=== PATIENT | female | born 1965 | race Caucasian/White ===

== ENCOUNTER 2016-10-15 20:58 | Emergency (ER) | payer OTHER ==
[2016-10-15 21:14] VITALS: TEMP 98.3; BMI 27.4
[2016-10-15] MEDS ORDERED: predniSONE 20 MG TABLET (UD) PO ONE (22:28)
[2016-10-15] MEDS: ALBUTEROL SO4 2.5/IPRATROPIUM 0.5 INH SOL 3 ML VIAL.NEB. NEB SCH ×3 (22:35→23:05)
--- NOTE | 2016-10-15 22:35 | PDOC ---
History of Present Illness - General Chief Complaint: Shortness of Breath Stated Complaint: DIFF BREATHING Time Seen by Provider: 10/15/16 21:35 History Source: Patient, Family Exam Limitations: No Limitations - History of Present Illness Initial Comments: 10/15/16 22:30 Patient is a 51-year-old female with history of hypertension, 2, complaining of chest tightness, shortness of breath 3 months. States has been coughing and wheezing. Cough is productive of white sputum and wheezing mostly at night. States allergy to cats but does not have any cats in her residence and has had no environmental changes. Denies recent travel, no history of PE or DVT, fever, chills, chest pain . No history of asthma but states she has been seen in the ER for the same symptoms and treated with albuterol. Family hx neg for MA, CVA, PE/DVT PMD: None PMHX: as above PSOCHX: neg cig, etoh, drug PFamHX: neg MA/CVA, PE, DVT ALL: NKDA GENERAL/CONSTITUTIONAL: [No fever or chills. No weakness. No weight change.] HEAD, EYES, EARS, NOSE AND THROAT: [No change in vision. No ear pain or discharge. No sore throat.] CARDIOVASCULAR: [No chest pain or shortness of breath.] RESPIRATORY: (+)cough, (+) wheezing, or hemoptysis.] GASTROINTESTINAL: [No nausea, vomiting, diarrhea or constipation. No rectal bleeding.] GENITOURINARY: [No dysuria, frequency, or change in urination.] MUSCULOSKELETAL: [No joint or muscle swelling or pain. No neck or back pain.] SKIN AND BREASTS: [No rash or easy bruising.] NEUROLOGIC: [No headache, vertigo, loss of consciousness, or loss of sensation.] PSYCHIATRIC: [No depression or anxiety.] ENDOCRINE: [No increased thirst. No abnormal weight change.] HEMATOLOGIC/LYMPHATIC: [No anemia, easy bleeding, or history of blood clots.] ALLERGIC/IMMUNOLOGIC: [No hives or skin allergy. No latex allergy.] GENERAL: [The patient is awake, alert, and fully oriented, in no acute distress. ] HEAD: [Normal with no signs of trauma.] EYES: [Pupils equal, round and reactive to light, extraocular movements intact, sclera anicteric, conjunctiva clear.] ENT: [Ears normal, nares patent, oropharynx clear without exudates. Moist mucous membranes.] NECK: [Normal range of motion, supple without lymphadenopathy, JVD, or masses.] LUNGS: [Breath sounds equal, bilateral wheezes, and no crackles.] HEART: [Regular rate and rhythm, normal S1 and S2 without murmur, rub.] ABDOMEN: [Soft, nontender, normoactive bowel sounds. No guarding, no rebound. No masses.] EXTREMITIES: [Normal range of motion, no edema. No clubbing or cyanosis. No cords, erythema, or tenderness.] NEUROLOGICAL: [Cranial nerves II through XII grossly intact. Normal speech, normal gait.] PSYCH: [Normal mood, normal affect.] SKIN: [Warm, Dry, normal turgor, no rashes or lesions noted.] Past History - Past Medical History Allergies/Adverse Reactions: Allergies Allergy/AdvReac Type Severity Reaction Status Date / Time No Known Allergies Allergy Verified 10/15/16 21:12 Home Medications: Ambulatory Orders Amlodipine Besylate [Norvasc -] 10 mg PO DAILY 04/21/16 Albuterol Sulfate Inhaler - [Ventolin HFA Inhaler -] 2 inh PO Q4H #1 inh Amlodipine Besylate 10 mg PO DAILY #20 tablet 10/15/16 Prednisone [Deltasone -] 20 mg PO DAILY #6 tablet 10/15/16 HTN: Yes - Surgical History Abdominal Surgery: Yes (c/section x2) - Psycho/Social/Smoking Cessation Hx Anxiety: No Suicidal Ideation: No Smoking Status: No Smoking History: Never smoked Have you smoked in the past 12 months: No Number of Cigarettes Smoked Daily: 0 Hx Alcohol Use: No Drug/Substance Use Hx: No Substance Use Type: None Hx Substance Use Treatment: No Respiratory Specific PMHX - Complaint Specific PMHX Bronchitis: No Pneumonia: No *Physical Exam - Vital Signs Last Vital Signs Temp Pulse Resp BP Pulse Ox 98.3 F 92 H 22 140/100 95 10/15/16 21:12 10/15/16 21:12 10/15/16 21:12 10/15/16 21:12 10/15/16 21:12 ED Treatment Course - RADIOLOGY Radiology Studies Ordered: Category Date Time Status CHEST PA & LAT [RAD] Stat Radiology 10/15/16 22:29 Ordered Medical Decision Making - Medical Decision Making 10/15/16 22:35 Patient is a 51-year-old female with history of hypertension, C/S 2 c/o SOB, chest tightness, coughing symptoms consistent with bronchitis/asthma. Patient is PERC neg not likely to be PE, Given neb and prednisone. patient received neb treatment and responded Currently has no wheezing symptoms have resolved CXR neg as read by me I discussed the physical exam findings, ancillary test results and final diagnoses with the patient. I answered all of the patient's questions. The patient was satisfied with the care received and felt comfortable with the discharge plan and treatment plan. The Patient agrees to follow up with the primary care physician within 24-72 hours. *DC/Admit/Observation/Transfer Diagnosis at time of Disposition: Bronchitis, Asthma exacerbation - Discharge Dispostion Disposition: HOME Condition at time of disposition: Stable - Prescriptions Prescriptions: Amlodipine Besylate 10 mg PO DAILY #20 tablet Prednisone [Deltasone -] 20 mg PO DAILY #6 tablet Albuterol Sulfate Inhaler - [Ventolin HFA Inhaler -] 2 inh PO Q4H #1 inh - Referrals Referrals: Leonora Skinner MD [Primary Care Provider] - - Patient Instructions Printed Discharge Instructions: DI for Acute Bronchitis Additional Instructions: Your Discharge Instructions: You must call primary care physician within 24 hours to arrange follow-up. Return to the Emergency Department with any new, persistent or worsening symptoms, for fever, chills, SOB, dizziness or any other concerning changes that may occur.
[2016-10-15] MEDS ORDERED: predniSONE 20 MG TABLET (UD) ONE (22:38)
[2016-10-15] MEDS ORDERED: ALBUTEROL SO4 2.5/IPRATROPIUM 0.5 INH SOL 3 ML VIAL.NEB. NEB ONE (22:39)
[2016-10-16 00:32] VITALS: BP 148/89; PULSE 73
== END 2016-10-16 00:31 | disposition home or self-care (01) ==
LOC: JER 20:58
PROC: 3E0F7GC Introduction of Other Therapeutic Substance into Respiratory Tract, Via Natural or Artificial Opening (ICD-10-PCS; principal; 2016-10-15)
DX: J45.901 Unspecified asthma with (acute) exacerbation (principal); J20.9 Acute bronchitis, unspecified; I10 Essential (primary) hypertension
CPT/HCPCS: 71020-TC; 94640; 99282-25

== ENCOUNTER 2016-12-07 23:06 | Emergency (ER) | payer OTHER ==
[2016-12-07] MEDS ORDERED: predniSONE 20 MG TABLET (UD) PO ONE (23:35)
[2016-12-07] MEDS ORDERED: ALBUTEROL SO4 0.083% IH SOL 2.5 MG/3 ML VIAL.NEB. NEB ONE ×3 (23:35→23:55)
--- NOTE | 2016-12-07 23:35 | PDOC ---
History of Present Illness - General History Source: Patient Exam Limitations: No Limitations - History of Present Illness Initial Comments: 12/07/16 23:37 The patient is a 51 year old female with significant past medical history of asthma and hypertension who presents to the ED with 1 month of progressively worsening SOB. Patient reports her SOB has worsened with the past month. She reports associated wheezing and productive cough with white sputum. She uses her inhaler at home that has been somewhat effective. However, after using her inhaler today, her symptoms were not relieved. The patient denies fever, chills, diaphoresis, lightheadedness, and chest pain. The patient denies abdominal pain, nausea, vomiting, and diarrhea. Allergies: NKDA Social History: No alcohol, tobacco, or drug use reported. Past Surgical History: PCP: None reported <Itzel Murry - Last Filed: 12/07/16 23:37> - General History Source: Patient <Toni Boyd - Last Filed: 12/08/16 02:03> - General Chief Complaint: Cold Symptoms Stated Complaint: SHORTNESS OF BREATH Time Seen by Provider: 12/07/16 23:16 Past History <Itzel Murry - Last Filed: 12/07/16 23:37> - Past Medical History HTN: Yes - Surgical History Abdominal Surgery: Yes (c/section x2) - Psycho/Social/Smoking Cessation Hx Anxiety: No Suicidal Ideation: No Smoking Status: No Smoking History: Never smoked Have you smoked in the past 12 months: No Number of Cigarettes Smoked Daily: 0 Information on smoking cessation initiated: No Hx Alcohol Use: No Drug/Substance Use Hx: No Substance Use Type: None Hx Substance Use Treatment: No <Toni Boyd - Last Filed: 12/08/16 02:03> - Past Medical History Allergies/Adverse Reactions: Allergies Allergy/AdvReac Type Severity Reaction Status Date / Time No Known Allergies Allergy Verified 12/07/16 23:15 Home Medications: Ambulatory Orders Amlodipine Besylate [Norvasc -] 10 mg PO DAILY 04/21/16 Amlodipine Besylate 10 mg PO DAILY #20 tablet 10/15/16 Prednisone [Deltasone -] 20 mg PO DAILY #6 tablet 10/15/16 Albuterol Sulfate Inhaler - [Ventolin HFA Inhaler -] 2 inh PO Q4H #1 inh Methylprednisolone [Medrol Dose Rodolfo] 4 mg PO ASDIR #21 tablet 12/08/16 Review of Systems - Review of Systems Able to Perform ROS?: Yes Comments:: 12/07/16 23:37 CONSTITUTIONAL: Absent: fever, no chills, no fatigue EYES: Absent: visual changes ENT: Absent: ear pain, no sore throat CARDIOVASCULAR: Absent: chest pain, no palpitations RESPIRATORY: +productive cough with white sputum, SOB, wheezing GI: Absent: abdominal pain, no nausea, no vomiting, no constipation, no diarrhea GENITOURINARY: Absent: dysuria, no frequency, no hematuria MUSKULOSKELETAL: Absent: back pain, no arthralgia, no myalgia SKIN: Absent: rash NEURO: Absent: headache <Itzel Murry - Last Filed: 12/07/16 23:37> *Physical Exam - Vital Signs Last Vital Signs Temp Pulse Resp BP Pulse Ox 98.2 F 77 18 154/96 94 L 12/07/16 23:15 12/07/16 23:15 12/07/16 23:15 12/07/16 23:15 12/07/16 23:15 - Physical Exam Comments: 12/07/16 23:37 GENERAL: Well-appearing, well-nourished. No apparent distress. HEENT: Normocephalic, atraumatic. PERRL, EOM intact. CARDIOVASCULAR: Normal S1, S2. Regular rate and rhythm. PULMONARY: Mild respiratory distress. Mild conversational dyspnea. Diffuse wheezing bilaterally. ABDOMEN: Soft, non-distended, non-tender. EXTREMITIES: Normal ROM in all four extremities. No gross deformities. SKIN: Warm, dry. No rash NEUROLOGICAL: No focal neurological deficits. <Itzel Murry - Last Filed: 12/07/16 23:37> - Vital Signs Last Vital Signs Temp Pulse Resp BP Pulse Ox 98.2 F 77 18 154/96 94 L 12/07/16 23:15 12/07/16 23:15 12/07/16 23:15 12/07/16 23:15 12/07/16 23:15 <Toni Boyd - Last Filed: 12/08/16 02:03> Medical Decision Making - Medical Decision Making 12/08/16 02:03 Dr. Boyd: The scribe's documentation has been prepared under my direction and personally reviewed by me in its entirery. I confirm that the note above accurately reflects all work, treatment, procedures, and medical decision making performed by me. <Toni Boyd - Last Filed: 12/08/16 02:03> *DC/Admit/Observation/Transfer - Attestations Scribe Attestion: 12/07/16 23:37 Documentation prepared by Itzel Murry, acting as director biomedical engineering for Toni Boyd MD <Itzel Murry - Last Filed: 12/07/16 23:37> - Discharge Dispostion Admit: No <Toni Boyd - Last Filed: 12/08/16 02:03> Diagnosis at time of Disposition: Asthma exacerbation - Discharge Dispostion Disposition: HOME Condition at time of disposition: Stable - Prescriptions Prescriptions: Methylprednisolone [Medrol Dose Rodolfo] 4 mg PO ASDIR #21 tablet Albuterol Sulfate Inhaler - [Ventolin HFA Inhaler -] 2 inh PO Q4H #1 inh - Patient Instructions Printed Discharge Instructions: DI for Asthma -- Adult
[2016-12-07 23:36] VITALS: TEMP 98.2; BMI 29.2
[2016-12-07] MEDS ORDERED: predniSONE 20 MG TABLET (UD) ONE (23:55)
[2016-12-08] MEDS ORDERED: ALBUTEROL SO4 0.083% IH SOL 2.5 MG/3 ML VIAL.NEB. NEB ONE ×2 (00:25→01:57)
[2016-12-08 02:31] VITALS: BP 134/83; PULSE 84
== END 2016-12-08 02:32 | disposition home or self-care (01) ==
LOC: JER 23:06
DX: J45.901 Unspecified asthma with (acute) exacerbation (principal); I10 Essential (primary) hypertension
CPT/HCPCS: 99282-25

== ENCOUNTER 2017-07-25 11:40 | Emergency (ER) | payer OTHER ==
[2017-07-25 11:57] VITALS: TEMP 98.3; BMI 30.2
--- NOTE | 2017-07-25 12:33 | PDOC ---
History of Present Illness - General Chief Complaint: Pain Stated Complaint: BACK PAIN Time Seen by Provider: 07/25/17 12:32 - History of Present Illness Initial Comments: 07/25/17 12:32 Ms. Jensen is a 52 yo female with a significant past medical history of Asthma and Hypertension who presents to the emergency department with a 3 day history of pain in her low back radiating around on both sides to her mid abdomen. She reports that she has additionally had a lot of peeing with minor burning during this time as well. The patient denies chest pain, shortness of breath, headache and dizziness. Denies fever, chills, nausea, vomit, diarrhea and constipation. Denies urgency and hematuria. Allergies: NKDA Social history: Denies Past History - Past Medical History Allergies/Adverse Reactions: Allergies Allergy/AdvReac Type Severity Reaction Status Date / Time No Known Allergies Allergy Verified 07/25/17 11:57 Home Medications: Ambulatory Orders Amlodipine Besylate [Norvasc -] 10 mg PO DAILY 04/21/16 HTN: Yes - Surgical History Abdominal Surgery: Yes (c/section x2) - Suicide/Smoking/Psychosocial Hx Smoking Status: No Smoking History: Never smoked Have you smoked in the past 12 months: No Number of Cigarettes Smoked Daily: 0 Hx Alcohol Use: No Drug/Substance Use Hx: No Substance Use Type: None Hx Substance Use Treatment: No Review of Systems - Review of Systems Comments:: 07/25/17 12:33 GENERAL/CONSTITUTIONAL: No fever or chills. No weakness. HEAD, EYES, EARS, NOSE AND THROAT: No change in vision. No ear pain or discharge. No sore throat. CARDIOVASCULAR: No chest pain or shortness of breath RESPIRATORY: No cough, wheezing, or hemoptysis. GASTROINTESTINAL: No nausea, vomiting, diarrhea or constipation. GENITOURINARY: +Urinary changes of frequency and dysuria MUSCULOSKELETAL: No joint or muscle swelling or pain. No neck or back pain. SKIN: No rash NEUROLOGIC: No headache, vertigo, loss of consciousness, or change in strength/ sensation. ENDOCRINE: No increased thirst. No abnormal weight change HEMATOLOGIC/LYMPHATIC: No anemia, easy bleeding, or history of blood clots. ALLERGIC/IMMUNOLOGIC: No hives or skin allergy. *Physical Exam - Vital Signs Last Vital Signs Temp Pulse Resp BP Pulse Ox 98.3 F 72 20 200/95 99 07/25/17 11:53 07/25/17 11:53 07/25/17 11:53 07/25/17 11:53 07/25/17 11:53 - Physical Exam Comments: 07/25/17 12:33 GENERAL: Awake, alert, and fully oriented, in no acute distress HEAD: No signs of trauma, normocephalic, atraumatic EYES: PERRLA, EOMI, sclera anicteric, conjunctiva clear ENT: Auricles normal inspection, hearing grossly normal, nares patent, oropharynx clear without exudates. Moist mucosa NECK: Normal ROM, supple, no lymphadenopathy, JVD, or masses LUNGS: No distress, speaks full sentences, clear to auscultation bilaterally HEART: Regular rate and rhythm, normal S1 and S2, no murmurs, rubs or gallops, peripheral pulses normal and equal bilaterally. ABDOMEN: Soft, nontender, normoactive bowel sounds. No guarding, no rebound. No masses EXTREMITIES: Normal inspection, Normal range of motion, no edema. No clubbing or cyanosis. NEUROLOGICAL: Cranial nerves II through XII grossly intact. Normal speech, normal gait, no focal sensorimotor deficits SKIN: Warm, Dry, normal turgor, no rashes or lesions noted. ED Treatment Course - LABORATORY CBC & Chemistry Diagram: 07/25/17 12:50 07/25/17 12:50 Medical Decision Making - Medical Decision Making 07/25/17 15:02 Patient presents with vague lower back pain radiating to stomach. Standard labs sent as well as UA. 07/25/17 15:02 Call received from Lab, glucose 350 07/25/17 18:18 Patient has diabetes based upon random BGM of 350. Patient counseled on need to f/u with PCP as soon as possible, patient given lab values and verbalized understanding. Information regarding diabetes given as well. *DC/Admit/Observation/Transfer Diagnosis at time of Disposition: Diabetes mellitus Qualifiers: Diabetes mellitus type: type 2 Diabetes mellitus complication status: with unspecified complications Diabetes mellitus salvage determiner insulin use: without salvage determiner use Qualified Code(s): E11.8 - Type 2 diabetes mellitus with unspecified complications; E11.8 - Type 2 diabetes mellitus with unspecified complications; E11.8 - Type 2 diabetes mellitus with unspecified complications; E11.8 - Type 2 diabetes mellitus with unspecified complications - Discharge Dispostion Disposition: HOME - Patient Instructions Printed Discharge Instructions: DI for Hyperglycemia -- Adult, Type 2 Diabetes Additional Instructions: Your labs here reveal that you likely have diabetes. This is likely causing your urinary frequency. You must follow up with your primary doctor in 1-2 days. Return to the emergency department immediately if you have any new, worsening, or concerning symptoms. Print Language: ESTONIAN
[2017-07-25] MEDS ORDERED: morphine CARPU-JECT 2 MG/1 ML DISP.SYRIN IVPUSH ONE (12:48)
--- NOTE | 2017-07-25 12:48 | PDOC ---
Attending Attestation - Resident Resident Name: Cleve Loco - ED Attending Attestation I have performed the following: I have examined & evaluated the patient, The case was reviewed & discussed with the resident, I agree w/resident's findings & plan, Exceptions are as noted - HPI HPI: 07/25/17 12:46 52yo F hx asthma, HTN p/w low back pain that wraps around both sides to the abdomen. +urinary frequency and dysuria. Denies fevers, chills, cp, sob, n/v/d, LE edema, rashes. - Physicial Exam PE: 07/25/17 12:47 GENERAL: Awake, alert, and fully oriented, in no acute distress HEAD: No signs of trauma EYES: PERRLA, EOMI, sclera anicteric, conjunctiva clear ENT: Auricles normal inspection, hearing grossly normal, nares patent, oropharynx clear without exudates. Moist mucosa NECK: Normal ROM, supple, no lymphadenopathy, JVD, or masses LUNGS: Breath sounds equal, clear to auscultation bilaterally. No wheezes, and no crackles HEART: Regular rate and rhythm, normal S1 and S2, no murmurs, rubs or gallops ABDOMEN: Soft, nontender, normoactive bowel sounds. No guarding, no rebound. No masses EXTREMITIES: Normal range of motion, no edema. No clubbing or cyanosis. No cords, erythema, or tenderness NEUROLOGICAL: Normal speech, cranial nerves intact, negative pronator drift, 5/ 5 strength in all 4 extremities, normal sensation to light touch in all 4 extremities, normal cerebellar exam, normal gait, normal reflexes and tone SKIN: Warm, Dry, normal turgor, no rashes or lesions noted.
[2017-07-25] MEDS ORDERED: morphine CARPU-JECT 2 MG/1 ML DISP.SYRIN ONE (13:08)
[2017-07-25] MEDS ORDERED: ACETAMINOPHEN 325 MG TABLET (FP) PO ONE (13:33)
[2017-07-25 13:34] LABS: EOSINOPHIL 4.6 % (0-4.5); MCH 28.5 pg (25.7-33.7); MCHC 32.7 g/dl (32.0-36.0); MEAN CELL VOLUME 87.3 fl (80-96); MEAN PLT VOLUME 10.2 fl (7.5-11.1); NEUTROPHILS 58.2 % (42.8-82.8); PLATELET COUNT 277 K/MM3 (134-434); RDW 13.5 % (11.6-15.6)
[2017-07-25 13:35] LABS: URINE APPEARANCE CLOUDY; URINE BILIRUBIN NEGATIVE (NEGATIVE); URINE BLOOD NEGATIVE (NEGATIVE); URINE COLOR YELLOW; URINE GLUCOSE (UA) 3+ (NEGATIVE); URINE KETONE NEGATIVE (NEGATIVE); URINE NITRITE NEGATIVE (NEGATIVE); URINE PROTEIN NEGATIVE (NEGATIVE); URINE UROBILINOGEN NEGATIVE mg/dL (0.2-1.0)
[2017-07-25] MEDS ORDERED: ACETAMINOPHEN 325 MG TABLET (FP) ONE (13:50)
[2017-07-25 14:51] LABS: ANION GAP 6 (8-16); BILIRUBIN,TOTAL 0.4 mg/dL (0.2-1.0); CO2 30 mmol/L (21-32); CREATININE 0.7 mg/dL (0.55-1.02); SGOT/AST 22 U/L (15-37); SGPT/ALT 32 U/L (12-78); TOT PROT 7.4 g/dl (6.4-8.2)
[2017-07-25 14:52] LABS: ALK PHOS 141 U/L (45-117)
[2017-07-25 15:01] LABS: GLUCOSE,RANDOM 350 mg/dL (74-106)
[2017-07-25] MEDS ORDERED: SODIUM CHLORIDE 1,000 ML IV STA (15:04)
[2017-07-25 17:54] LABS: URINE LEUK ESTERASE Negative (NEGATIVE)
[2017-07-25 18:57] VITALS: BP 158/89; PULSE 70
== END 2017-07-25 18:57 | disposition home or self-care (01) ==
LOC: JER 11:40
PROC: 3E0337Z Introduction of Electrolytic and Water Balance Substance into Peripheral Vein, Percutaneous Approach (ICD-10-PCS; principal; 2017-07-25)
DX: E11.65 Type 2 diabetes mellitus with hyperglycemia (principal); I10 Essential (primary) hypertension; J45.909 Unspecified asthma, uncomplicated
CPT/HCPCS: 36415; 80053; 81003; 85025; 99283-25

== ENCOUNTER 2021-06-17 17:26 | Observation (INO) | payer OTHER ==
[2021-06-17] MEDS ORDERED: ACETAMINOPHEN 1000 MG/100 ML VIAL (NON FORMULARY) IVPB ONE (18:28)
[2021-06-17] MEDS ORDERED: ASPIRIN 81 MG CHEWABLE TABLETS PO ONE (18:32)
[2021-06-17] MEDS ORDERED: ACETAMINOPHEN INJECTION 100 ML IVPB ONE (18:33)
[2021-06-17 19:15] LABS: BASO % 0.7 % (0-2.0); EOS % 2.3 % (0-4.5); HEMATOCRIT 42.4 % (32.4-45.2); HEMOGLOBIN 14.6 GM/dL (10.7-15.3); LYMPH % 21.9 % (8-40); MCHC 34.4 g/dl (32.0-36.0); MEAN CELL VOLUME 87.3 fl (80-96); MEAN PLT VOLUME 9.1 fl (7.5-11.1); MONO % 6.4 % (3.8-10.2); NEUT % 68.7 % (42.8-82.8); PLATELET COUNT 338 10^3/uL (134-434); RBC 4.86 M/mm3 (3.60-5.2); RDW 13.1 % (11.6-15.6); WHITE BLOOD COUNT 10.3 K/mm3 (4.0-10.0)
[2021-06-17 19:18] LABS: EPI CELLS 6 /uL (0-25.1); HYALINE CASTS 1 /uL (0-3.1); URINE APPEARANCE CLEAR; URINE BACTERIA 132 /uL (0-1359); URINE BILIRUBIN NEGATIVE (NEGATIVE); URINE COLOR YELLOW; URINE GLUCOSE (UA) NEGATIVE (NEGATIVE); URINE KETONE TRACE (NEGATIVE); URINE LEUK ESTERASE 1+ (NEGATIVE); URINE NITRITE NEGATIVE (NEGATIVE); URINE PROTEIN NEGATIVE (NEGATIVE); URINE RBC 11 /uL (0-23.9); URINE UROBILINOGEN 0.2 mg/dL (0.2-1.0); URINE WBC 103 /uL (0-25.8)
[2021-06-17] MEDS ORDERED: ASPIRIN 81 MG CHEWABLE TABLETS ONE (19:26)
[2021-06-17 19:34] LABS: CHLORIDE 103 mmol/L (98-107); SODIUM 140 mmol/L (136-145)
[2021-06-17 19:36] LABS: CALCIUM 8.8 mg/dL (8.5-10.1); GLUCOSE,RANDOM 108 mg/dL (74-106)
[2021-06-17 19:37] LABS: ALBUMIN 3.8 g/dl (3.4-5.0); ANION GAP 9 MMOL/L (8-16); BLOOD UREA NITROGEN 9.9 mg/dL (7-18); CO2 28 mmol/L (21-32)
[2021-06-17] MEDS ORDERED: CEFTRIAXONE 1 GM in DEXTROSE 5%-WATER - 50 ML IVPB ONE ×2 (19:39→23:53)
[2021-06-17 19:40] LABS: CREATININE 0.8 mg/dL (0.55-1.3); SGOT/AST 14 U/L (15-37); SGPT/ALT 24 U/L (13-61)
[2021-06-17 19:41] LABS: BILIRUBIN,TOTAL 0.4 mg/dL (0.2-1); TOT PROT 7.8 g/dl (6.4-8.2)
[2021-06-17 19:42] LABS: ALK PHOS 128 U/L (45-117)
[2021-06-17] MEDS ORDERED: CEFTRIAXONE 1 GM/50 ML BAG ONE (20:20)
[2021-06-17] MEDS ORDERED: ACETAMINOPHEN 325 MG TABLET (FP) PO PRN (23:14)
[2021-06-17] MEDS ORDERED: HYDROCHLOROTHIAZIDE 12.5 MG CAPSULE (FP) PO ONE (23:18)
[2021-06-17] MEDS ORDERED: CEFTRIAXONE 1,000 MG in DEXTROSE 5%-WATER - 50 ML IVPB ONE (23:25)
[2021-06-18] MEDS ORDERED: MELATONIN 5 MG TABLETS PO PRN (03:39)
[2021-06-18] MEDS ORDERED: POTASSIUM CHLORIDE TABS 20 MEQ TABLET.ER (FP) PO ONE (03:41)
[2021-06-18] MEDS ORDERED: POTASSIUM CHLORIDE TABS 10 MEQ TABLET.ER (FP) ONE (04:05)
[2021-06-18] MEDS ORDERED: amLODIPine BESYLATE 5 MG TABLET (FP) ONE (08:34)
[2021-06-18] MEDS ORDERED: HYDROCHLOROTHIAZIDE 25 MG TABLET (FP) ONE (08:35)
[2021-06-18] MEDS ORDERED: LOSARTAN POTASSIUM 50 MG TABLET ONE (08:35)
[2021-06-18] MEDS ORDERED: ENOXAPARIN NA (PORCINE) 40 MG/0.4 ML DISP.SYRIN SQ ONE (08:35)
[2021-06-18 08:53] LABS: BASO % 0.9 % (0-2.0); EOS % 6.2 % (0-4.5); HEMATOCRIT 41.3 % (32.4-45.2); HEMOGLOBIN 14.1 GM/dL (10.7-15.3); LYMPH % 28.2 % (8-40); MCH 29.8 pg (25.7-33.7); MCHC 34.3 g/dl (32.0-36.0); MEAN CELL VOLUME 86.8 fl (80-96); MEAN PLT VOLUME 8.7 fl (7.5-11.1); NEUT % 56.7 % (42.8-82.8); PLATELET COUNT 317 10^3/uL (134-434); RBC 4.75 M/mm3 (3.60-5.2); RDW 13.2 % (11.6-15.6); WHITE BLOOD COUNT 7.4 K/mm3 (4.0-10.0)
[2021-06-18] MEDS: INSULIN SLIDING SCALE (NOVOLOG) 1 VIAL SQ SCH ×4 (09:16→22:11)
[2021-06-18] MEDS: ENOXAPARIN NA (PORCINE) 40 MG/0.4 ML DISP.SYRIN SQ SCH (09:16)
[2021-06-18] MEDS: LOSARTAN POTASSIUM 50 MG TABLET PO SCH (09:16)
[2021-06-18] MEDS: HYDROCHLOROTHIAZIDE 12.5 MG CAPSULE (FP) PO SCH (09:16)
[2021-06-18 09:18] LABS: CHOLESTEROL 202 mg/dL (50-200); TRIGLYCERIDES 66 mg/dL (0-150)
[2021-06-18 09:19] LABS: LDL CHOLESTEROL (ONLY SJRH) 108 mg/dL (5-100)
[2021-06-18 09:20] LABS: CALCIUM 8.9 mg/dL (8.5-10.1)
[2021-06-18 09:21] LABS: ALBUMIN 3.4 g/dl (3.4-5.0); BLOOD UREA NITROGEN 12.8 mg/dL (7-18); HDL CHOLESTEROL 75 mg/dL (40-60); MAGNESIUM 2.1 mg/dL (1.8-2.4)
[2021-06-18 09:24] LABS: CREATININE 0.9 mg/dL (0.55-1.3); PHOSPHOROUS 4.1 mg/dL (2.5-4.9)
[2021-06-18 09:25] LABS: BILIRUBIN,TOTAL 0.6 mg/dL (0.2-1); TOT PROT 7.3 g/dl (6.4-8.2)
[2021-06-18] MEDS ORDERED: amLODIPine BESYLATE 10 MG TABLET (FP) PO SCH (10:00)
[2021-06-18] MEDS ORDERED: ATORVASTATIN CA 10 MG TABLET (FP) ONE (21:23)
[2021-06-18] MEDS: ATORVASTATIN CA 10 MG TABLET (FP) PO SCH (21:45)
[2021-06-19] MEDS: INSULIN SLIDING SCALE (NOVOLOG) 1 VIAL SQ SCH ×4 (06:50→21:50)
[2021-06-19] MEDS ORDERED: LOSARTAN POTASSIUM 50 MG TABLET ONE (10:04)
[2021-06-19] MEDS ORDERED: amLODIPine BESYLATE 5 MG TABLET (FP) ONE (10:04)
[2021-06-19] MEDS ORDERED: ENOXAPARIN NA (PORCINE) 40 MG/0.4 ML DISP.SYRIN SQ ONE (10:05)
[2021-06-19] MEDS: LOSARTAN POTASSIUM 50 MG TABLET PO SCH (10:08)
[2021-06-19] MEDS: HYDROCHLOROTHIAZIDE 12.5 MG CAPSULE (FP) PO SCH (10:08)
[2021-06-19] MEDS: ENOXAPARIN NA (PORCINE) 40 MG/0.4 ML DISP.SYRIN SQ SCH (10:09)
[2021-06-19] MEDS: amLODIPine BESYLATE 5 MG TABLET (FP) PO SCH (10:09)
[2021-06-19] MEDS: ATORVASTATIN CA 10 MG TABLET (FP) PO SCH (21:50)
[2021-06-19 22:28] VITALS: BMI 28.7
[2021-06-20] MEDS: INSULIN SLIDING SCALE (NOVOLOG) 1 VIAL SQ SCH ×2 (06:14→12:00)
[2021-06-20 07:36] LABS: HEMATOCRIT 41.3 % (32.4-45.2); HEMOGLOBIN 13.9 GM/dL (10.7-15.3); MCH 29.5 pg (25.7-33.7); MCHC 33.7 g/dl (32.0-36.0); MEAN CELL VOLUME 87.6 fl (80-96); MEAN PLT VOLUME 8.9 fl (7.5-11.1); PLATELET COUNT 290 10^3/uL (134-434); RBC 4.72 M/mm3 (3.60-5.2); RDW 13.2 % (11.6-15.6); WHITE BLOOD COUNT 7.8 K/mm3 (4.0-10.0)
[2021-06-20 08:03] LABS: BLOOD UREA NITROGEN 22.8 mg/dL (7-18); CALCIUM 8.6 mg/dL (8.5-10.1)
[2021-06-20] MEDS: amLODIPine BESYLATE 5 MG TABLET (FP) PO SCH ×2 (08:58→15:19)
[2021-06-20] MEDS ORDERED: REGADENOSON 0.4 MG/5 ML PRE-FILLED SYRINGE IVPUSH ONE ×2 (10:44→11:00)
[2021-06-20] MEDS ORDERED: POTASSIUM CHLORIDE TABS 20 MEQ TABLET.ER (FP) PO ONE (14:53)
[2021-06-20] MEDS: LOSARTAN POTASSIUM 50 MG TABLET PO SCH (15:12)
[2021-06-20] MEDS: HYDROCHLOROTHIAZIDE 12.5 MG CAPSULE (FP) PO SCH (15:12)
[2021-06-20] MEDS: KCL 10 MEQ IVPB 10 MEQ/100 ML INFUS.BAG IVPB SCH (15:19)
[2021-06-20 18:50] VITALS: BP 134/82; PULSE 68; TEMP 98.4
== END 2021-06-20 19:21 | disposition home or self-care (01) ==
LOC: JER 17:26 → JERBED 20:08 → J4W 06-19 20:43
PROVIDERS: ADMIT Internal Medicine; ATTEND Internal Medicine
PROC: 3E033NZ Introduction of Analgesics, Hypnotics, Sedatives into Peripheral Vein, Percutaneous Approach (ICD-10-PCS; principal; 2021-06-17)
PROC: 3E03329 Introduction of Other Anti-infective into Peripheral Vein, Percutaneous Approach (ICD-10-PCS; 2021-06-17)
PROC: 3E023GC Introduction of Other Therapeutic Substance into Muscle, Percutaneous Approach (ICD-10-PCS; 2021-06-17)
PROC: 3E033GC Introduction of Other Therapeutic Substance into Peripheral Vein, Percutaneous Approach (ICD-10-PCS; 2021-06-17)
DX: I16.9 Hypertensive crisis, unspecified (principal); R07.9 Chest pain, unspecified; E87.6 Hypokalemia; E11.9 Type 2 diabetes mellitus without complications; N39.0 Urinary tract infection, site not specified; Z29.9 Encounter for prophylactic measures, unspecified
CPT/HCPCS: 36415; 71046-TC-FY; 78452-TC; 80048; 80053; 80061; 81003; 82550; 82553; 82962; 83036; 83735; 84100; 84436; 84443; 84484; 85025; 85027; 87086; 93005; 93010; 93017; 93306-TC; 96365; 96372; 96375; 99285-25; A9502; C1887; C9803; G0378; J0131; J2785; U0003; U0005

== ENCOUNTER 2023-04-30 19:14 | Inpatient (IN) | payer OTHER ==
[2023-04-30 20:59] LABS: EPI CELLS >36 /uL (0-25.1); HYALINE CASTS 1 /uL (0-3.1); PH,URINE >= 9.0 (5.0-8.0); URINE APPEARANCE TURBID; URINE BACTERIA 334 /uL (0-1359); URINE BILIRUBIN NEGATIVE (NEGATIVE); URINE COLOR YELLOW; URINE GLUCOSE (UA) NEGATIVE (NEGATIVE); URINE KETONE NEGATIVE (NEGATIVE); URINE LEUK ESTERASE TRACE (NEGATIVE); URINE NITRITE NEGATIVE (NEGATIVE); URINE PROTEIN 1+ (NEGATIVE); URINE RBC 254 /uL (0-23.9); URINE UROBILINOGEN 0.2 mg/dL (0.2-1.0); URINE WBC 51 /uL (0-25.8)
[2023-04-30] MEDS ORDERED: ACETAMINOPHEN 1000 MG/100 ML BAG IVPB ONE (21:53)
[2023-04-30] MEDS ORDERED: ACETAMINOPHEN INJECTION 100 ML IVPB ONE (21:59)
[2023-04-30 22:46] LABS: BASO % 0.7 % (0-2.0); HEMATOCRIT 45.9 % (32.4-45.2); HEMOGLOBIN 15.1 GM/dL (10.7-15.3); LYMPH % 8.4 % (8-40); MCH 28.3 pg (25.7-33.7); MCHC 32.9 g/dl (32.0-36.0); MEAN CELL VOLUME 86.2 fl (80-96); MEAN PLT VOLUME 9.6 fl (7.5-11.1); MONO % 3.5 % (3.8-10.2); NEUT % 86.4 % (42.8-82.8); PLATELET COUNT 302 10^3/uL (134-434); RBC 5.33 M/mm3 (3.60-5.2); WHITE BLOOD COUNT 14.4 K/mm3 (4.0-10.0)
[2023-04-30 23:07] LABS: BLOOD UREA NITROGEN 12.4 mg/dL (7-18)
[2023-04-30 23:09] LABS: POTASSIUM 4.5 mmol/L (3.5-5.1)
[2023-04-30 23:10] LABS: CREATININE 1.2 mg/dL (0.55-1.3)
[2023-04-30 23:12] LABS: BILIRUBIN,TOTAL 0.4 mg/dL (0.2-1)
[2023-05-01] MEDS ORDERED: CEFTRIAXONE 1,000 MG in DEXTROSE 5%-WATER - 50 ML IVPB ONE (02:03)
[2023-05-01] MEDS ORDERED: TAMSULOSIN HCL 0.4 MG CAP PO ONE (02:09)
[2023-05-01] MEDS ORDERED: morphine CARPU-JECT 4 MG/1 ML DISP.SYRIN IVPUSH ONE (02:19)
[2023-05-01] MEDS ORDERED: CEFTRIAXONE 1 GM/50 ML BAG ONE (02:19)
[2023-05-01] MEDS ORDERED: TAMSULOSIN HCL 0.4 MG CAP ONE (02:19)
[2023-05-01] MEDS ORDERED: morphine SULFATE 4 MG/ML VIAL ONE (02:25)
[2023-05-01] MEDS: LACTATED RINGERS SOLUTION 1,000 ML/1,000 ML INFUS.BAG IV SCH ×2 (05:38→13:59)
[2023-05-01 06:28] LABS: HEMATOCRIT 44.1 % (32.4-45.2); HEMOGLOBIN 14.3 GM/dL (10.7-15.3); MCH 28.6 pg (25.7-33.7); MCHC 32.4 g/dl (32.0-36.0); MEAN CELL VOLUME 88.1 fl (80-96); MEAN PLT VOLUME 9.9 fl (7.5-11.1); PLATELET COUNT 290 10^3/uL (134-434); RDW 13.7 % (11.6-15.6)
[2023-05-01 06:38] LABS: INR 1.03 (0.83-1.09); PROTHROMBIN TIME (PATIENT) 11.9 SEC (9.7-13.0)
[2023-05-01 06:47] LABS: ALBUMIN 3.4 g/dl (3.4-5.0); CALCIUM 8.6 mg/dL (8.5-10.1)
[2023-05-01 06:51] LABS: CREATININE 1.1 mg/dL (0.55-1.3)
[2023-05-01 06:52] LABS: BILIRUBIN,TOTAL 0.6 mg/dL (0.2-1); TOT PROT 7.1 g/dl (6.4-8.2)
[2023-05-01 08:29] VITALS: BMI 19.8
[2023-05-01] MEDS ORDERED: LOSARTAN POTASSIUM 50 MG TABLET PO SCH (10:00)
[2023-05-01] MEDS: TAMSULOSIN HCL 0.4 MG CAP PO SCH (10:26)
[2023-05-01] MEDS: CEFTRIAXONE 1 GM in DEXTROSE 5%-WATER - 50 ML IVPB SCH (10:26)
[2023-05-01] MEDS ORDERED: ACETAMINOPHEN 1000 MG/100 ML BAG IVPB PRN (10:41)
[2023-05-01 11:06] LABS: EPI CELLS 20 /uL (0-25.1); HYALINE CASTS 2 /uL (0-3.1); URINE APPEARANCE CLEAR; URINE BACTERIA 88 /uL (0-1359); URINE BILIRUBIN NEGATIVE (NEGATIVE); URINE COLOR YELLOW; URINE GLUCOSE (UA) NEGATIVE (NEGATIVE); URINE KETONE TRACE (NEGATIVE); URINE LEUK ESTERASE TRACE (NEGATIVE); URINE NITRITE NEGATIVE (NEGATIVE); URINE PROTEIN TRACE (NEGATIVE); URINE RBC 120 /uL (0-23.9); URINE UROBILINOGEN 0.2 mg/dL (0.2-1.0); URINE WBC 85 /uL (0-25.8)
[2023-05-01] MEDS ORDERED: ONDANSETRON 4 MG/2 ML VIAL IVPUSH PRN (15:00)
[2023-05-01] MEDS ORDERED: MONTELUKAST NA 10 MG TABLET PO SCH (22:00)
[2023-05-01] MEDS ORDERED: amLODIPine BESYLATE 5 MG TABLET (FP) PO SCH (22:00)
[2023-05-02] MEDS: LACTATED RINGERS SOLUTION 1,000 ML/1,000 ML INFUS.BAG IV SCH (05:44)
[2023-05-02 09:02] LABS: BASO % 0.7 % (0-2.0); EOS % 5.7 % (0-4.5); HEMATOCRIT 42.7 % (32.4-45.2); HEMOGLOBIN 14.3 GM/dL (10.7-15.3); LYMPH % 15.3 % (8-40); MCH 28.8 pg (25.7-33.7); MCHC 33.5 g/dl (32.0-36.0); MEAN PLT VOLUME 9.6 fl (7.5-11.1); MONO % 7.1 % (3.8-10.2); NEUT % 71.2 % (42.8-82.8); PLATELET COUNT 261 10^3/uL (134-434); RBC 4.97 M/mm3 (3.60-5.2); RDW 13.7 % (11.6-15.6); WHITE BLOOD COUNT 11.4 K/mm3 (4.0-10.0)
[2023-05-02 09:26] LABS: POTASSIUM 4.5 mmol/L (3.5-5.1)
[2023-05-02 09:29] LABS: CALCIUM 8.2 mg/dL (8.5-10.1)
[2023-05-02 09:30] LABS: BLOOD UREA NITROGEN 13.6 mg/dL (7-18); MAGNESIUM 2.2 mg/dL (1.8-2.4)
[2023-05-02] MEDS: CEFTRIAXONE 1 GM in DEXTROSE 5%-WATER - 50 ML IVPB SCH (09:58)
[2023-05-02] MEDS: TAMSULOSIN HCL 0.4 MG CAP PO SCH (09:59)
[2023-05-02] MEDS ORDERED: POLYETHYLENE GLYCOL (HEALTHYLAX) 3350 17 GM PACKET PO SCH (10:00)
[2023-05-02] MEDS ORDERED: oxyCODONE HCL 5 MG TABLET PO PRN ×4 (12:55→13:56)
[2023-05-02] MEDS ORDERED: PROMETHAZINE HCL 25 MG/1 ML VIAL IVPB PRN ×2 (12:55→13:56)
[2023-05-02] MEDS ORDERED: LACTATED RINGERS SOLUTION 1,000 ML IV SCH (13:00)
[2023-05-02] MEDS ORDERED: PROPOFOL 20 ML ONE (13:05)
[2023-05-02] MEDS ORDERED: LIDOCAINE HCL/PF 2% SDV 5ML VIAL ONE (13:06)
[2023-05-02] MEDS ORDERED: ONDANSETRON 4 MG/2 ML VIAL ONE (13:06)
[2023-05-02] MEDS ORDERED: DEXAMETHASONE SOD PHOSPHATE 4 MG/1 ML VIAL ONE (13:06)
[2023-05-02] MEDS ORDERED: ONDANSETRON 4 MG/2 ML VIAL IVPUSH PRN (13:56)
[2023-05-02] MEDS: LACTATED RINGERS SOLUTION 1,000 ML IV SCH (15:29)
[2023-05-02] MEDS ORDERED: amLODIPine BESYLATE 10 MG TABLET (FP) PO SCH (22:00)
[2023-05-02] MEDS ORDERED: MONTELUKAST NA 10 MG TABLET PO SCH (22:00)
[2023-05-03 07:52] LABS: HEMATOCRIT 46.5 % (32.4-45.2); HEMOGLOBIN 14.9 GM/dL (10.7-15.3); MCH 28.3 pg (25.7-33.7); MEAN CELL VOLUME 88.4 fl (80-96); PLATELET COUNT 309 10^3/uL (134-434); RBC 5.25 M/mm3 (3.60-5.2); RDW 13.6 % (11.6-15.6); WHITE BLOOD COUNT 14.1 K/mm3 (4.0-10.0)
[2023-05-03 08:07] LABS: POTASSIUM 4.5 mmol/L (3.5-5.1)
[2023-05-03 08:11] LABS: BLOOD UREA NITROGEN 17.2 mg/dL (7-18); CALCIUM 9.3 mg/dL (8.5-10.1); MAGNESIUM 2.3 mg/dL (1.8-2.4)
[2023-05-03 08:14] LABS: PHOSPHOROUS 3.9 mg/dL (2.5-4.9)
[2023-05-03] MEDS ORDERED: TAMSULOSIN HCL 0.4 MG CAP PO SCH (08:30)
[2023-05-03] MEDS ORDERED: CEFTRIAXONE 1 GM in DEXTROSE 5%-WATER - 50 ML IVPB SCH (10:00)
[2023-05-03] MEDS ORDERED: POLYETHYLENE GLYCOL (HEALTHYLAX) 3350 17 GM PACKET PO SCH (10:00)
[2023-05-03] MEDS ORDERED: LOSARTAN POTASSIUM 50 MG TABLET PO SCH (10:00)
[2023-05-03] MEDS ORDERED: SODIUM CHLORIDE 500 ML IV SCH (10:10)
[2023-05-03] MEDS ORDERED: FENTANYL CITRATE/PF 50 MCG/ML VIAL IVPUSH ONE ×2 (10:22→10:48)
[2023-05-03] MEDS ORDERED: MIDAZOLAM HCL 2 MG/2 ML SINGLE DOSE VIAL IVPUSH ONE ×2 (10:22→10:48)
[2023-05-03 11:45] VITALS: RESP 18
[2023-05-03 14:50] VITALS: BP 135/72; PULSE 70; TEMP 97.9
[2023-05-03] MEDS: LACTATED RINGERS SOLUTION 1,000 ML IV SCH (15:36)
[2023-05-03] MEDS ORDERED: CEPHALEXIN MONOHYDRATE 500 MG CAPSULE (UD) PO SCH (18:00)
== END 2023-05-03 17:15 | disposition home or self-care (01) | DRG 443 ==
LOC: JER 19:14 → JERBED 05-01 02:06 → J7W 05-01 08:09
PROVIDERS: ADMIT Internal Medicine; ATTEND Nurse Practitioner Acute Care
PROC: BT1DZZZ Fluoroscopy of Right Kidney, Ureter and Bladder (ICD-10-PCS; principal; 2023-05-03)
PROC: 0TJB8ZZ Inspection of Bladder, Via Natural or Artificial Opening Endoscopic (ICD-10-PCS; 2023-05-03)
PROC: 0T9030Z Drainage of Right Kidney with Drainage Device, Percutaneous Approach (ICD-10-PCS; 2023-05-03)
DX: N12 Tubulo-interstitial nephritis, not specified as acute or chronic (principal); N13.2 Hydronephrosis with renal and ureteral calculous obstruction; I10 Essential (primary) hypertension; E11.9 Type 2 diabetes mellitus without complications; J45.909 Unspecified asthma, uncomplicated
CPT/HCPCS: 36415; 50432; 74176-TC; 76000-TC-FY; 76705-TC; 76775-TC; 80048; 80053; 81003; 83036; 83690; 83735; 84100; 85025; 85027; 85610; 86850; 86900; 86901; 87086; 94760; 99285-25

== ENCOUNTER 2023-05-21 04:44 | Day surgery (SDC) | payer OTHER ==
[2023-05-18 11:15] VITALS: BMI 28.3
[2023-05-21] MEDS ORDERED: LIDOCAINE HCL/PF 2% SDV 5ML VIAL ONE (09:55)
[2023-05-21] MEDS ORDERED: MIDAZOLAM HCL 2 MG/2 ML SINGLE DOSE VIAL ONE (09:56)
[2023-05-21] MEDS ORDERED: PROPOFOL 20 ML ONE (09:56)
[2023-05-21] MEDS ORDERED: ceFAZolin SODIUM 1 GM VIAL ONE (10:34)
[2023-05-21] MEDS ORDERED: DEXAMETHASONE SOD PHOSPHATE 4 MG/1 ML VIAL ONE (10:34)
[2023-05-21] MEDS ORDERED: IOHEXOL 300 MG/ML INFUS..BTL IV ONE (10:50)
[2023-05-21] MEDS ORDERED: ONDANSETRON 4 MG/2 ML VIAL ONE (11:15)
[2023-05-21] MEDS ORDERED: KETOROLAC TROMETHAMINE 30 MG/1 ML VIAL ONE (11:15)
[2023-05-21] MEDS ORDERED: oxyCODONE HCL 5 MG TABLET PO PRN ×2 (11:40)
[2023-05-21] MEDS ORDERED: ONDANSETRON 4 MG/2 ML VIAL IVPUSH PRN (11:40)
[2023-05-21] MEDS ORDERED: PROMETHAZINE HCL 25 MG/1 ML VIAL IVPB PRN (11:40)
[2023-05-21] MEDS ORDERED: hydrALAZINE HCL 20 MG/ML VIAL IVPUSH ONE (11:41)
[2023-05-21] MEDS ORDERED: ACETAMINOPHEN 1000 MG/100 ML BAG IVPB ONE ×2 (11:41→12:00)
[2023-05-21] MEDS ORDERED: LACTATED RINGERS SOLUTION 1,000 ML IV SCH (11:45)
[2023-05-21] MEDS ORDERED: ACETAMINOPHEN INJECTION 100 ML IVPB ONE (11:53)
[2023-05-21 15:09] VITALS: RESP 20; TEMP 97.8
[2023-05-21 15:16] VITALS: BP 130/80; PULSE 80
== END 2023-05-21 14:47 | disposition home or self-care (01) ==
LOC: JASU-SURG 04:44
PROVIDERS: ATTEND Urology
PROC: 0TC68ZZ Extirpation of Matter from Right Ureter, Via Natural or Artificial Opening Endoscopic (ICD-10-PCS; principal; 2023-05-21 11:00)
PROC: 0T768DZ Dilation of Right Ureter with Intraluminal Device, Via Natural or Artificial Opening Endoscopic (ICD-10-PCS; 2023-05-21 11:00)
DX: N13.2 Hydronephrosis with renal and ureteral calculous obstruction (principal)
CPT/HCPCS: 76000-TC-FY; 94760; C1747; C1758; C1769; C2617

== ENCOUNTER → 2023-05-31 | Day surgery (SDC) | payer OTHER | END | disposition home or self-care (01) | LOC: JRADIR 11:13 | PROVIDERS: ATTEND Urology | PROC: 0TP5X0Z Removal of Drainage Device from Kidney, External Approach (ICD-10-PCS; principal; 2023-05-31) | DX: N13.30 Unspecified hydronephrosis (principal) | CPT/HCPCS: 50431; 74425-TC-FY ==

== ENCOUNTER 2023-08-04 08:22 | Emergency (ER) | payer OTHER ==
[2023-08-04 08:30] VITALS: BP 157/101; BMI 26.6
[2023-08-04] MEDS ORDERED: ALBUTEROL SO4 2.5/IPRATROPIUM 0.5 INH SOL 3 ML VIAL.NEB. NEB ONE ×2 (09:03→09:10)
[2023-08-04] MEDS ORDERED: methylPREDNISolone NA SUCC 125 MG/2 ML VIAL IVPUSH ONE (09:04)
[2023-08-04] MEDS ORDERED: methylPREDNISolone NA SUCC 125 MG/2 ML VIAL ONE (09:11)
[2023-08-04 09:36] LABS: EOS % 18.2 % (0-4.5); HEMATOCRIT 46.2 % (32.4-45.2); HEMOGLOBIN 14.9 GM/dL (10.7-15.3); MCH 27.8 pg (25.7-33.7); MCHC 32.2 g/dl (32.0-36.0); MEAN CELL VOLUME 86.2 fl (80-96); MEAN PLT VOLUME 9.7 fl (7.5-11.1); MONO % 6.6 % (3.8-10.2); NEUT % 50.2 % (42.8-82.8); PLATELET COUNT 294 10^3/uL (134-434); RBC 5.36 M/mm3 (3.60-5.2); RDW 13.4 % (11.6-15.6); WHITE BLOOD COUNT 7.8 K/mm3 (4.0-10.0)
[2023-08-04 10:05] LABS: POTASSIUM 4.1 mmol/L (3.5-5.1)
[2023-08-04 10:08] LABS: ALBUMIN 3.4 g/dl (3.4-5.0); BLOOD UREA NITROGEN 14.4 mg/dL (7-18); CALCIUM 8.6 mg/dL (8.5-10.1)
[2023-08-04 10:11] LABS: CREATININE 0.8 mg/dL (0.55-1.3)
[2023-08-04 10:13] LABS: BILIRUBIN,TOTAL 0.4 mg/dL (0.2-1); TOT PROT 7.1 g/dl (6.4-8.2)
[2023-08-04 10:16] LABS: N-TERMINAL BNP 146.1 pg/ml (5-125)
[2023-08-04] MEDS ORDERED: ALBUTEROL SO4 0.083% IH SOL 2.5 MG/3 ML VIAL.NEB. NEB ONE ×2 (10:25→10:45)
[2023-08-04 11:35] VITALS: PULSE 102; RESP 18
== END 2023-08-04 11:57 | disposition home or self-care (01) ==
LOC: JER 08:22
PROC: 3E033GC Introduction of Other Therapeutic Substance into Peripheral Vein, Percutaneous Approach (ICD-10-PCS; principal; 2023-08-04)
PROC: 3E0F7GC Introduction of Other Therapeutic Substance into Respiratory Tract, Via Natural or Artificial Opening (ICD-10-PCS; 2023-08-04)
PROC: 3E0F7GC Introduction of Other Therapeutic Substance into Respiratory Tract, Via Natural or Artificial Opening (ICD-10-PCS; 2023-08-04)
DX: R06.02 Shortness of breath (principal); R05.9 Cough, unspecified; R09.81 Nasal congestion; J45.909 Unspecified asthma, uncomplicated; Z20.822 Contact with and (suspected) exposure to COVID-19
CPT/HCPCS: 0241U-QW; 36415; 71045-TC-FY; 80053; 83735; 83880; 84484; 85025; 93005; 93010; 99285-25

== ENCOUNTER 2024-06-17 14:42 | Emergency (ER) | payer OTHER ==
[2024-06-17 14:49] VITALS: BP 153/91; PULSE 83; RESP 16; TEMP 98.5; BMI 29.2
[2024-06-17] MEDS ORDERED: ACETAMINOPHEN INJECTION 100 ML ONE (15:45)
[2024-06-17] MEDS: ACETAMINOPHEN 1000 MG/100 ML BAG IVPB ONE (16:02)
[2024-06-17 16:08] LABS: BASO % 0.8 % (0-2.0); EOS % 9.8 % (0-4.5); HEMATOCRIT 45.8 % (32.4-45.2); HEMOGLOBIN 14.7 GM/dL (10.7-15.3); LYMPH % 22.3 % (8-40); MCH 28.4 pg (25.7-33.7); MCHC 32.1 g/dl (32.0-36.0); MEAN CELL VOLUME 88.6 fl (80-96); MONO % 7.2 % (3.8-10.2); NEUT % 59.9 % (42.8-82.8); PLATELET COUNT 254 10^3/uL (134-434); RBC 5.17 M/mm3 (3.60-5.2); RDW 14.2 % (11.6-15.6); WHITE BLOOD COUNT 12.6 K/mm3 (4.0-10.0)
[2024-06-17 16:15] LABS: INR 0.91 (0.83-1.09); PROTHROMBIN TIME (PATIENT) 10.5 SEC (9.7-13.0)
[2024-06-17 16:17] LABS: ACTIVATED PTT 30.2 SECONDS (25.2-36.5)
[2024-06-17 16:30] LABS: POTASSIUM 4.3 mmol/L (3.5-5.1)
[2024-06-17 16:32] LABS: ALBUMIN 3.7 g/dl (3.4-5.0); BLOOD UREA NITROGEN 15.6 mg/dL (7-18); CALCIUM 9.4 mg/dL (8.5-10.1)
[2024-06-17 16:35] LABS: CREATININE 0.9 mg/dL (0.55-1.3)
[2024-06-17 16:37] LABS: BILIRUBIN,TOTAL 0.3 mg/dL (0.2-1); TOT PROT 7.6 g/dl (6.4-8.2)
[2024-06-17 19:23] LABS: HIV INTERPRETATION NEGATIVE (NEGATIVE)
== END 2024-06-17 18:35 | disposition home or self-care (01) ==
LOC: JER 14:42
PROC: 3E033NZ Introduction of Analgesics, Hypnotics, Sedatives into Peripheral Vein, Percutaneous Approach (ICD-10-PCS; principal; 2024-06-17)
DX: R07.9 Chest pain, unspecified (principal); R06.02 Shortness of breath
CPT/HCPCS: 36415; 71046-TC-FY; 71275-TC; 80053; 84484; 85025; 85610; 85730; 86803; 87389; 93005; 93010; 96374; 99285-25; J0131; Q9967